=== PATIENT | female | born 1955 | race African-American/Black ===

== ENCOUNTER 2022-10-13 09:34 | Emergency (ER) | payer OTHER ==
[2022-10-13 10:05] VITALS: BP 133/69; PULSE 91; RESP 18; BMI 31.9
[2022-10-13] MEDS ORDERED: ACETAMINOPHEN 650 MG/20.3 ML ORAL SOLUTION (CUPS) PO ONE (10:22)
[2022-10-13] MEDS ORDERED: LIDOCAINE 5% TOPICAL PATCH TP ONE (10:22)
[2022-10-13] MEDS ORDERED: ACETAMINOPHEN 325 MG TABLET (FP) ONE (11:39)
[2022-10-13] MEDS ORDERED: LIDOCAINE 5% TOPICAL PATCH ONE (11:40)
[2022-10-13 11:47] LABS: BASO % 0.4 % (0-2.0); EOS % 0.9 % (0-4.5); HEMOGLOBIN 12.3 GM/dL (10.7-15.3); MCH 28.2 pg (25.7-33.7); MCHC 33.3 g/dl (32.0-36.0); MEAN CELL VOLUME 84.6 fl (80-96); MEAN PLT VOLUME 10.3 fl (7.5-11.1); MONO % 14.7 % (3.8-10.2); PLATELET COUNT 170 10^3/uL (134-434); RBC 4.38 M/mm3 (3.60-5.2); RDW 14.6 % (11.6-15.6); WHITE BLOOD COUNT 8.3 K/mm3 (4.0-10.0)
[2022-10-13 12:33] LABS: POTASSIUM 3.9 mmol/L (3.5-5.1)
[2022-10-13 12:36] LABS: ALBUMIN 3.8 g/dl (3.4-5.0); CALCIUM 9.3 mg/dL (8.5-10.1)
[2022-10-13 12:39] LABS: CREATININE 0.7 mg/dL (0.55-1.3)
[2022-10-13 12:41] LABS: BILIRUBIN,TOTAL 0.4 mg/dL (0.2-1); TOT PROT 7.1 g/dl (6.4-8.2)
[2022-10-13 13:06] VITALS: TEMP 99.6
[2022-10-13] MEDS ORDERED: LIDOCAINE PATCH REMOVAL MC ONE (22:00)
== END 2022-10-13 13:44 | disposition home or self-care (01) ==
LOC: JER 09:34
DX: R60.0 Localized edema (principal); M54.50 Low back pain, unspecified; R05.9 Cough, unspecified; M79.604 Pain in right leg; M79.605 Pain in left leg; U07.1 COVID-19
CPT/HCPCS: 36415; 80053; 85025; 93970-TC; 99284-25